=== PATIENT | male | born 1980 | race African-American/Black ===

== ENCOUNTER 2017-06-10 21:06 | Emergency (ER) | payer OTHER ==
[~2017-06-10] VITALS: Ht 172.7 cm; Wt 70.3 kg
[~2017-06-10 21:06] MED LIST: ALLERGY RELIEF10 M1 PO; TUSSIONEX PENN473 ML PO
== END 2017-06-10 22:52 | disposition home or self-care (01) ==
LOC: CED 21:06 → CFTX 21:06
DX: L60.0 Ingrowing nail (principal); L03.032 Cellulitis of left toe; B35.1 Tinea unguium; Z23 Encounter for immunization
CPT/HCPCS: 11750; 90471; 90715; 99283